=== PATIENT | male | born 1980 ===

== ENCOUNTER 2018-05-07 16:30 | Emergency (ER) | payer OTHER ==
[2018-05-07 16:46] VITALS: BMI 28.7
[2018-05-07 16:49] VITALS: BP 138/82; PULSE 86; RESP 18; TEMP 98.2; O2SAT 98
--- NOTE | 2018-05-07 18:28 | RAD ---
Date of service: 05/07/2018 PROCEDURE: Right Foot Radiographs. HISTORY: fell off latter today, heel/posterior ankle pain COMPARISON: None. FINDINGS: BONES: Normal. No fracture. JOINTS: Normal. SOFT TISSUES: Normal. OTHER FINDINGS: None. IMPRESSION: Normal right foot radiographs.
--- NOTE | 2018-05-07 18:28 | RAD ---
Date of service: 05/07/2018 PROCEDURE: Right Ankle Radiographs. HISTORY: fell off latter today, heel/posterior ankle pain COMPARISON: None available. FINDINGS: BONES: Normal. No fracture. JOINTS: Normal. No osteoarthritis. Ankle mortise maintained. Talar dome intact SOFT TISSUES: Normal. OTHER FINDINGS: None. IMPRESSION: Normal right ankle radiographs.
--- NOTE | 2018-05-07 18:29 | RAD ---
Date of service: 05/07/2018 PROCEDURE: Radiographs of the right calcaneus/hindfoot. HISTORY: fell off latter today, heel/posterior ankle pain COMPARISON: None available. TECHNIQUE: Frontal and lateral radiographs of the calcaneus. FINDINGS: No fracture or joint dislocation. No focal lesion. No calcaneal spur. IMPRESSION: Unremarkable radiographs of the right calcaneus /hindfoot.
--- NOTE | 2018-05-07 18:36 | ED PDOC ---
Arrival/HPI - General Chief Complaint: Lower Extremity Problem/Injury Time Seen by Provider: 05/07/18 16:34 - History of Present Illness Narrative History of Present Illness (Text): 37 y/o with no significant PMH presents to the ED c/o right ankle pain s/p injury at 14:30 today. Pt was standing on top of a 8 foot ladder when he fell, landing on his right ankle. Denies head strike or LOC. Pt is not on blood thinners. Pt states he is unable to bear weight on the right foot/ankle. Has not taken any medication for pain. Denies numbness, paresthesias, weakness, back pain, neck pain, dizziness, vision changes, abdominal pain, N/V, or any other associated symptoms. Past Medical History - Provider Review Nursing Documentation Reviewed: Yes - Infectious Disease Hx of Infectious Diseases: None - Psychiatric Hx Substance Use: No - Anesthesia Hx Anesthesia: No Family/Social History - Physician Review Nursing Documentation Reviewed: Yes Family/Social History: No Known Family HX Smoking Status: Never Smoked Hx Alcohol Use: No Hx Substance Use: No Allergies/Home Meds Allergies/Adverse Reactions: Allergies No Known Allergies Allergy (Verified 05/07/18 16:46) Review of Systems - Physician Review All systems were reviewed & negative as marked: Yes - Review of Systems Constitutional: Normal. absent: Fevers Eyes: Normal. absent: Vision Changes, Photophobia, Eye Pain ENT: Normal. absent: Sinus Congestion Respiratory: Normal. absent: SOB, Cough Cardiovascular: Normal. absent: Chest Pain, Palpitations Gastrointestinal: Normal. absent: Abdominal Pain, Nausea, Vomiting Genitourinary Male: Normal. absent: Dysuria, Frequency Musculoskeletal: Arthralgias (right ankle/foot). absent: Back Pain, Neck Pain Skin: Normal. absent: Rash Neurological: Normal. absent: Headache, Dizziness, Focal Weakness, Disequilibrium, Seizure Endocrine: Normal Hemo/Lymphatic: Normal Psychiatric: Normal Physical Exam Vital Signs Reviewed: Yes Vital Signs Temp Pulse Resp BP Pulse Ox 05/07/18 16:48 98.2 F 86 18 138/82 98 Temperature: Afebrile Blood Pressure: Normal Pulse: Regular Respiratory Rate: Normal Appearance: Positive for: Well-Appearing, Non-Toxic, Comfortable Pain Distress: None Mental Status: Positive for: Alert and Oriented X 3 - Systems Exam Head: Present: Atraumatic, Normocephalic Pupils: Present: PERRL Extroacular Muscles: Present: EOMI Conjunctiva: Present: Normal Ears: Present: Normal. No: Other (no hemotympanum) Mouth: Present: Moist Mucous Membranes Pharnyx: Present: Normal Nose (External): Present: Atraumatic Nose (Internal): Present: Normal Inspection Neck: Present: Normal Range of Motion. No: Meningeal Signs, MIDLINE TENDERNESS, Paraspinal Tenderness Respiratory/Chest: Present: Clear to Auscultation, Good Air Exchange. No: Respiratory Distress, Accessory Muscle Use Cardiovascular: Present: Regular Rate and Rhythm, Normal S1, S2 Abdomen: Present: Normal Bowel Sounds. No: Tenderness, Distention, Peritoneal Signs, Rebound, Guarding Back: Present: Normal Inspection. No: CVA Tenderness, Midline Tenderness, Paraspinal Tenderness Upper Extremity: Present: Normal Inspection, Normal ROM, NORMAL PULSES, Neurovascularly Intact, Capillary Refill < 2s. No: Cyanosis, Edema, Temperature Abnormalties Lower Extremity: Present: Normal Inspection, NORMAL PULSES, Tenderness (right heel, mid-plantar foot, achilles tendon), Swelling (mild right heel and mid foot ), Neurovascularly Intact, Capillary Refill < 2 s, Other (No ecchymosis; (+) [place] test - achilles tendon appears intact). No: Edema, CALF TENDERNESS, Normal ROM (decreased ROM of right ankle and digits), Erythema, Deformity, Temperature Abnormalties Neurological: Present: GCS=15, CN II-XII Intact, Speech Normal, Motor Func Grossly Intact, Normal Sensory Function. No: Gait Normal (unable to bear weight right ankle) Skin: Present: Warm, Dry, Normal Color. No: Rashes Lymphatic: No: Cervical Adenopathy Psychiatric: Present: Alert, Oriented x 3, Normal Insight, Normal Concentration, Normal Affect, Normal Mood Medical Decision Making ED Course and Treatment: Initial Plan: * Right foot XR * Right ankle XR * Right heel XR * Ibuprofen Patient adamantly denies head strike or LOC. Not on blood thinners. Was able ambulate immediately after injury. No dizziness, N/V, headache, no signs of basilar skull fx. No complaints of back pain. No midline vertebral tenderness or paraspinal tenderness on exam. Normal ROM of back and neck without pain. Nexus C-Spine criteria negative. No indication for C-spine imaging. Case discussed with ED attending Dr. Acevedo, who agrees with plan of care. Pt splinted in right posterior short leg splint by optical manufacturing technician, approved by me. Neurovascular exam remains unchanged. Crutches provided and teaching done by optical manufacturing technician. Pt able to demonstrate appropriate and safe crutch use prior to discharge. Instructed to followup with podiatry within 2 days, be non-weight bearing on the right foot and use crutches for ambulation. Diagnostic testing results and plan of care discussed with patient. Strict instructions given regarding prescription use, importance of followup, and signs/symptoms to return to ER including numbness, paresthesias, weakness, or any other new/worsening symptoms. Pt verbalized understanding of discussion. Patient is A&Ox3, ambulating with steady gait, with vital signs stable for discharge. - RAD Interpretation Narrative RAD Interpretations (Text): Right Foot XR: Dictator : Ej Barber MD Report Date : 05/07/2018 18:24:56 FINDINGS: BONES: Normal. No fracture. JOINTS: Normal. SOFT TISSUES: Normal. OTHER FINDINGS: None. IMPRESSION: Normal right foot radiographs. Right Ankle XR: Dictator : Ej Barber MD Report Date : 05/07/2018 18:25:16 FINDINGS: BONES: Normal. No fracture. JOINTS: Normal. No osteoarthritis. Ankle mortise maintained. Talar dome intact SOFT TISSUES: Normal. OTHER FINDINGS: None. IMPRESSION: Normal right ankle radiographs. Right Heel XR: Dictator : Ej Barber MD Report Date : 05/07/2018 18:25:37 FINDINGS: No fracture or joint dislocation. No focal lesion. No calcaneal spur. IMPRESSION: Unremarkable radiographs of the right calcaneus /hindfoot. Radiology Orders: 05/07/18 17:00 ANKLE RIGHT 3 VIEWS ROUTINE [RAD] Stat FOOT RIGHT 3 VIEWS ROUTINE [RAD] Stat HEEL RIGHT [RAD] Stat Reaming Machine Operator For Plastic: Radiologist - Medication Orders Current Medication Orders: Discontinued Medications Ibuprofen (Motrin Tab) 600 mg PO STAT STA Stop: 05/07/18 17:05 Last Admin: 05/07/18 17:13 Dose: 600 mg MAR Pain/Vitals Document 05/07/18 17:13 [facility] (Rec: 05/07/18 17:14 [facility][id number]) Pain Reassessment Is This A Pain ReAssessment? No Presence of Pain Presence of Pain Yes Pain Scale Used Protocol: PSCALES Pain Scale Used Numeric Location Intensity 7 Disposition/Present on Arrival - Present on Arrival Any Indicators Present on Arrival: No History of DVT/PE: No History of Uncontrolled Diabetes: No Urinary Catheter: No History of Decub. Ulcer: No History Surgical Site Infection Following: None - Disposition Have Diagnosis and Disposition been Completed?: Yes Diagnosis: Injury of right ankle and foot Disposition: HOME/ ROUTINE Disposition Time: 18:30 Patient Plan: Discharge Condition: GOOD Discharge Instructions (ExitCare): Ankle Sprain, Foot Sprain (DC) Additional Instructions: Keep splint on until followup with podiatry Use crutches for ambulation, do not bear weight Ibuprofen every 8 hours as needed for pain Followup with podiatry within 2 days Followup with primary doctor within 2 days Return to ER with any new/worsening symptoms Prescriptions: RX: Ibuprofen [Motrin Tab] 600 mg PO Q8H #30 tab Referrals: [facility] [place] - Follow up with primary Podiatry Clinic [Outside] - Follow up with primary Argenis Quinonez MD [Medical Doctor] - Follow up with primary Forms: [employer] ([place]), WORK NOTE
== END 2018-05-07 19:10 | disposition home or self-care (01) ==
LOC: ED 16:30
DX: S99.911A Unspecified injury of right ankle, initial encounter (principal); W11.XXXA Fall on and from ladder, initial encounter